=== PATIENT | female | born 1950 | race African-American/Black ===

== ENCOUNTER 2017-08-09 12:59 | Emergency (ER) | payer MEDICARE, OTHER ==
[2017-08-09 14:01] LABS: #Lymphocytes 1.3 thou/uL (1.20-3.40); #Monocytes 0.5 thou/uL (0.11-0.59); #Neutrophils 11.1 thou/uL (1.40-6.50); %Basophils 0.1 % (0.0-1.0); %Eosinophils 0.1 % (0.0-10.0); %Lymphocytes 9.7 % (21.0-51.0); %Monocytes 3.8 % (0.0-10.0); Hematocrit 47.1 % (36.0-47.0); Red Blood Cell (RBC) Count 5.87 mill/uL (4.20-5.40); White Blood Cell (WBC) Count 12.9 thou/uL (4.8-10.8)
--- NOTE | 2017-08-09 14:31 | RAD ---
SINGLE VIEW CHEST: HISTORY: Right sided chest pain and vomiting. COMPARISON: 08/19/2008 FINDINGS: A single view of the chest shows a normal sized cardiomediastinal silhouette. Linear opacity in the right lung base likely represents atelectasis. No consolidation, mass, or pleural effusion is seen . Degenerative changes are seen in the spine. IMPRESSION: Right basilar atelectasis without acute infiltrate. POS: [facility]
[2017-08-09 14:32] LABS: Troponin I 0.026 ng/mL (< 0.028)
[2017-08-09 14:34] LABS: ALT (SGPT) 12 U/L (8-55); AST (SGOT) 13 U/L (5-34); Alkaline Phosphatase 136 U/L (40-150); Anion Gap 17 mmol/L (10-20); BUN (Urea Nitrogen) 17 mg/dL (9.8-20.1); Bilirubin, Total 0.4 mg/dL (0.2-1.2); CK (CPK) 146 U/L (29-168); Calc. Creatinine Clearance 0 mL/min (70-130); Calcium 10.2 mg/dL (7.8-10.44); Carbon Dioxide 28 mmol/L (23-31); Chloride 97 mmol/L (98-107); Estimated GFR-MDRD 74; Globulin 3.7 g/dL (2.4-3.5); Lipase 18 U/L (8-78); Protein, Total 8.2 g/dL (6.0-8.3)
--- NOTE | 2017-08-09 14:34 | RAD ---
RIGHT SHOULDER THREE VIEWS: HISTORY: Right shoulder pain. FINDINGS: There are degenerative changes in the acromioclavicular joint. No fracture, dislocation, or bony de struction is seen. POS: [facility]
[2017-08-09] MEDS ORDERED: Ondansetron ODT 8 MG TAB ONE (16:17)
[2017-08-09] MEDS ORDERED: Ketorolac Tromethamine 60 MG/2 ML VIAL ONE (16:17)
== END 2017-08-09 16:48 | disposition home or self-care (01) ==
LOC: ERS 12:59
DX: M62.830 Muscle spasm of back (principal); R11.2 Nausea with vomiting, unspecified; I10 Essential (primary) hypertension
CPT/HCPCS: 36415; 71010; 80053; 82553; 83690; 84484; 85025; 93005; 94760; 96372; J1885

== ENCOUNTER 2018-01-28 11:13 | Outpatient (CLI) | payer MEDICARE | END 2018-01-28 11:14 | disposition home or self-care (01) | LOC: BICMAMMO 11:13 | PROVIDERS: ATTEND Internal Medicine Gastroenterology | DX: Z12.31 Encounter for screening mammogram for malignant neoplasm of breast (principal); N95.9 Unspecified menopausal and perimenopausal disorder; M81.0 Age-related osteoporosis without current pathological fracture; Z80.3 Family history of malignant neoplasm of breast | CPT/HCPCS: 77063; 77067; 77080 ==